=== PATIENT | male | born 1950 | race Asian ===

== ENCOUNTER 2018-08-10 10:22 | Emergency (ER) | payer BC ==
--- NOTE | 2018-08-10 10:40 | ED ---
Syncope/Near Syncope - HPI Summary HPI Summary: A 68 y/o male brought in by [facility] ambulance presents to [facility] with a chief complaint of a witnessed syncopal episode while at work post trying to urinate the morning of 08/10/18. The patient reports that at the bathroom while trying to urinate he felt dizzy. He then walked out of the bathroom after unsuccessfully urinating and he had the witnessed syncopal episode. When EMS arrived he tried to convince EMS and his coworkers that he was fine but then had a near syncopal episode again when trying to get up to go to the bathroom again and so he was brought to the ED. Per triage note, EMS arrived and state he was mildly bradycardic and hypotensive. He reports that he has a Hx of dizziness and that while he was in [place] one month [employer] he had a syncopal episode while on a train. He reports that at the time after the episode in [facility] his dizziness continued for a little while and his BP was low but he gradually got better and so he did not see anybody about this episode. He denies fever, chills, erythema (eyes), sore throat, runny nose, nasal congestion , chest pain, shortness of breath, abdominal pain, vomiting, nausea, diarrhea, hematuria , myalgia, edema and rash. However, he reports that he has had a cough for one week [employer], that he had blurry vision after his syncopal episode, he has a dry mouth and that his feet are currently cold. At triage he rated his pain as a 0/10 in severity. Vital signs at triage. HR: 87 bpm, Temperature: 97.9 , BP: 147/78, O2 Sat: 98. He denies a FHx of cardiac disease. He reports that he has been taking 5 mg of Norvasc for borderline HTN and that he takes Simvastatin. He also took Delsym for his cough. His PCP is Dr. Goyo Barton and he claims that he said that his prostate was OK. He reports that he urinated normally the morning of 08/10/18 but sometimes has difficulty urinating at night and so he has an appointment scheduled with a urologist. - History Of Current Complaint Chief Complaint: EDSyncope Hx Obtained From: Patient, EMS Onset/Duration: Sudden Onset Timing: Intermittent Episode Lasting - 1 episode followed by 1 near syncopal episode Context: Witnessed Activity At Onset: Other - after trying to urinate Associated Head Trauma: No Aggravating Factor(s): Nothing Alleviating Factor(s): Nothing Associated Signs And Symptoms: Dizzy, Other - Positive: cough, difficulty urinating - Allergies/Home Medications Allergies/Adverse Reactions: Allergies Allergy/AdvReac Type Severity Reaction Status Date / Time No Known Allergies Allergy Verified 08/10/18 10:33 Home Medications: Home Medications Norvasc 5 mg PO DAILY 08/10/18 [History Confirmed 08/10/18] Simvastatin 10 mg PO DAILY 08/10/18 [History Confirmed 08/10/18] PMH/Surg Hx/FS Hx/Imm Hx Cardiovascular History: Reports: Hx Hypertension - borderline Sensory History: Reports: Hx Contacts or Glasses Neurological History: Reports: Other Neuro Impairments/Disorders - dizziness Infectious Disease History: No Infectious Disease History: Denies: Traveled Outside the [place] in Last 30 Days - but was in [facility] - Family History Known Family History: Negative: Cardiac Disease - Social History Alcohol Use: None Substance Use Type: Reports: None Smoking Status (MU): Never Smoked Tobacco Review of Systems Negative: Fever, Chills Negative: Erythema ENT: Negative - nasal congestion Negative: Sore Throat, Nasal Discharge Negative: Chest Pain Positive: Cough. Negative: Shortness Of Breath Negative: Abdominal Pain, Vomiting, Diarrhea, Nausea Positive: other - Positive: difficulty urinating. Negative: hematuria Negative: Myalgia, Edema Negative: Rash Neurological: Other - Positive: dizziness Positive: Syncope All Other Systems Reviewed And Are Negative: Yes Physical Exam - Summary Physical Exam Summary: Constitutional: Well-developed, Well-nourished, Alert. (-) Distressed Skin: Warm, Dry HENT: Normocephalic; Atraumatic, dry oral mucosa Eyes: Conjunctiva normal Neck: Musculoskeletal ROM normal neck. (-) JVD, (-) Stridor, (-) Tracheal deviation Cardio: Rhythm regular, rate normal, vagal arrhythmia [place] post cold; Intact distal pulses; The pedal pulses are 2+ and symmetric. Radial pulses are 2+ and symmetric. (-) Murmur Pulmonary/Chest wall: Effort normal. (-) Respiratory distress, (-) Wheezes, (-) Rales Abd: Soft, (-) epigastric tenderness, (-) Distension, (-) Guarding, (-) Rebound Musculoskeletal: (-) Edema Lymph: (-) Cervical adenopathy Neuro: Micturition syncope an residual symptoms of prostatic enlargement, Alert , Oriented x3 Psych: Mood and affect Normal Triage Information Reviewed: Yes Vital Signs On Initial Exam: Initial Vitals Temp Pulse Resp BP Pulse Ox 97.9 F 87 30 147/78 98 08/10/18 10:25 08/10/18 10:25 08/10/18 10:25 08/10/18 10:25 08/10/18 10:25 Vital Signs Reviewed: Yes Diagnostics - Vital Signs Vital Signs Temp Pulse Resp BP Pulse Ox 08/10/18 10:25 97.9 F 87 30 147/78 98 - Laboratory Result Diagrams: 08/10/18 10:57 08/10/18 10:57 Lab Statement: Any lab studies that have been ordered have been reviewed, and results considered in the medical decision making process. - Radiology CXR Radiology Interpretation Completed By: Radiologist Summary of Radiographic Findings: No active cardiopulmonary disease. ED physician has reviewed this imaging report. - EKG 10:52 Cardiac Rate: NL - 74 bpm EKG Rhythm: Sinus Rhythm Summary of EKG Findings: Normal sinus rhythm at 74 bpm. No STEMI. Course/Dx Course Of Treatment: A 68 y/o male brought in by [employer] ambulance presents to [facility] with a chief complaint of a witnessed syncopal episode while at work post trying to urinate the morning of 08/10/18. Workup is remarkable. The physical exam revealed dry oral mucosa, micturition syncope, vagal arrhythmia [place] cold, residual symptoms of prostatic enlargement. EKG at 10:52 showed normal sinus rhythm at 74 bpm. CXR was negative. Lab results obtained. Post void residual was 15 mls 15 mins after 40. Case discussed with Dr. Chen, hospitalist , who accepted the patient for admission. The patient is agreeable with this plan. - Diagnoses Provider Diagnoses: Syncope - Physician Notifications Discussed Care of Patient With: Bethel Chen Time Discussed With Above Provider: 12:10 Instructed by Provider To: Admit As Inpatient Discharge - Sign-Out/Discharge Documenting (check all that apply): Patient Departure - admit Patient Received Moderate/Deep Sedation with Procedure: No - Discharge Plan Condition: Fair Disposition: ADMITTED TO [facility] Patient Education Materials: Syncope (DC), Syncope (GEN) Referrals: Goyo Barton MD [Primary Care Provider] - 1-3 Days Additional Instructions: Activity as tolerated Do Not drive until you follow up with your primary care doctor Follow up with your primary care provider for further recommendations of evaluation of your syncopal episode. Return to the Emergency room with any chest pain or shortness of breath, any syncopal episodes , or any other concerns. - Billing Disposition and Condition Condition: FAIR Disposition: Admitted to [facility] - Attestation Statements Document Initiated by Scribe: Yes Documenting Scribe: Balta Hightower Provider For Whom Scribe is Documenting (Include Credential): Martín Short MD Scribe Attestation: IBalta, scribed for Martín Short MD on 08/10/18 at 2219. Scribe Documentation Reviewed: Yes Provider Attestation: The documentation as recorded by the Balta mary accurately reflects the service I personally performed and the decisions made by , Martín Short MD Status of Scribe Document: Viewed
[2018-08-10] MEDS ORDERED: NS 0.9% 1000 ML** 2,000 ML IV ONE (10:43)
--- OUTSIDE RECORDS SUMMARY | 2018-08-10 10:51 | XMS REPORT | Continuity of Care Document ---
:1950 External Reference #:[id number] Author Name Silvestre Dejesus MD Address [address] [place] [address] Care Team Providers Name Role Phone Goyo Barton MD Care Team Information [employer] Work[employer] Unavailable Goyo Barton MD Primary Care Physician Unavailable Payers Type Date Identification Numbers Payment Provider Subscriber Effective: Policy Number: [id number] [facility] Flor 2018 [facility] PayID: [id number] [address] [address] [place] [address] Advance Directives Description No Information Available Problems Date Description Provider Status Onset: 08/03/2018 Essential hypertension Silvestre Dejesus MD Active Onset: 08/03/2018 Sensorineural hearing loss Silvestre Dejesus MD Active Onset: 08/03/2018 Impacted cerumen Silvestre Dejesus MD Active Family History Date Family Member(s) Problem(s) Comments General Cancer General Diabetes Social History Type Date Description Comments Sex Unknown Occupation clinic office coordinator Tobacco Use Start: Unknown Never Smoked Cigarettes Tobacco Use Start: Unknown Never Smoked Cigars Tobacco Use Start: Unknown Never Smoked A Pipe Smokeless Tobacco Never Used Smokeless Tobacco ETOH Use PT Does Not Currently Drink Alcohol But Did In The Past Allergies, Adverse Reactions, Alerts Description No Known Drug Allergies Medications Medication Date Status Form Strength Qnty SIG Indications Ordering Provider Simvastatin 00 Active Tablets 10mg Take One Unknown 00 Tablet By Mouth AT Bedtime Norvasc Active Tablets 5mg Unknown 00 Centrum Adults Active Tablets 1 tab Unknown 00 daily Immunizations Description No Information Available Vital Signs Date Vital Result Comment 08/03/2018 10:54am Weight 158.00 lb Weight 71.669 kg Height 65 inches 5'5" Height in cm's 165.1 cm BMI (Body Mass Index) 26.3 kg/m2 Results Description No Information Available Procedures Date Code Description Status 08/03/2018 27781 Removal Wax Impaction Completed Encounters Type Date Location Provider Dx Diagnosis Office Visit 08/03/2018 Franklyn,Silvestre Guerrero H61.23 Impacted cerumen, 10:30a 07/10/07 bilateral H90.5 Unspecified sensorineural hearing loss Plan of Treatment 08/03/2018 - Silvestre Dejesus MDH61.23 Impacted cerumen, bilateralComments:The patient's cerumen impaction was cleaned without difficulty. patient may return back for follow-up hearing test if he continues to have discomfort with hearing.H90.5 Unspecified sensorineural hearing loss
[2018-08-10 11:04] LABS: ABS Basophils 0.1 10^3/ul (0-0.2); ABS Eosinophils 0.1 10^3/ul (0-0.6); ABS Monocytes 0.5 10^3/ul (0-0.8); ABS Neutrophils 4.2 10^3/ul (1.5-7.7); ABS Nucleated RBC 0 10^3/ul; Eosinophil % 0.9 %; Hematocrit 42 % (42-52); Hemoglobin 14.4 g/dl (14.0-18.0); Lymphocyte % 29.2 %; Mean Corpuscular HGB Conc 34 g/dl (31-36); Mean Corpuscular Hemoglobin 31 pg (27-31); Mean Corpuscular Volume 91 fL (80-94); Mean Platelet Volume 7.4 fL (7.4-10.4); Nucleated Red Blood Cells % 0; Platelet Count 166 10^3/ul (150-450); Red Blood Count 4.66 10^6/ul (4.00-5.40); Red Cell Distribution Width 13 % (10.5-15); White Blood Count 6.8 10^3/ul (3.5-10.8)
[2018-08-10 11:26] LABS: Albumin 4.1 g/dL (3.2-5.2); Albumin/Globulin Ratio 1.3 (1-3); BUN/Creatinine Ratio 17.4 (8-20); Calcium 9.1 mg/dL (8.6-10.3); EGFR African American 106.4 (>60); EGFR Non-African American 87.9 (>60); Globulin 3.2 g/dL (2-4); Magnesium 2.1 mg/dL (1.9-2.7); Potassium 4.2 mmol/L (3.5-5.0); Total Bilirubin 0.7 mg/dL (0.2-1.0); Total Protein 7.3 g/dL (6.4-8.9)
[2018-08-10 11:27] LABS: Troponin I 0.01 ng/mL (<0.04)
[2018-08-10 11:46] LABS: TSH (Thyroid Stimulating Horm) 1.53 mcIU/mL (0.34-5.60)
[2018-08-10] MEDS ORDERED: Acetaminophen TAB* 325 MG PO PRN (13:32)
[2018-08-10 13:52] LABS: Urine Appearance Clear; Urine Bacteria Absent (Absent); Urine Bilirubin Negative (Negative); Urine Blood Negative (Negative); Urine Color Yellow; Urine Glucose Negative (Negative); Urine Ketones Trace (Negative); Urine Nitrite Negative (Negative); Urine Protein Negative (Negative); Urine Red Blood Cell 1+(3-5/hpf) (Absent); Urine Specific Gravity 1.011 (1.010-1.030); Urine Urobilinogen Negative (Negative); Urine White Blood Cell Trace(0-5/hpf) (Absent)
[2018-08-10] MEDS ORDERED: Enoxaparin(*) 40 MG/0.4 ML SYR SUBCUT SCH (14:00)
--- NOTE | 2018-08-10 15:35 | CONS ---
CC: Dr. Goyo Barton HISTORY AND PHYSICAL: DATE OF ADMISSION: 08/10/18 PROVIDER: Bree Walsh NP. PRIMARY CARE PROVIDER: Dr. Goyo Barton. ATTENDING PHYSICIAN WHILE IN THE HOSPITAL: Dr. Bethel Chne (dictated by Bree Walsh NP). CHIEF COMPLAINT: Syncope. HISTORY OF PRESENT ILLNESS: Mr. Flor is a 68-year-old male with past medical history significan t for hypertension and high cholesterol who presented to the emergency room by EMS after a syncopal e pisode while at work. The patient reports that he was feeling in his usual state of health this morn ing with no recent fever, chills, chest pain, or shortness of breath. He does report he has had a co ugh for approximately 2 to 3 days, it has been dry. He states that he attempted to go use the bathro om, was unable to urinate, and when walking out of the bathroom, he became dizzy and had a syncopal e pisode where staff that he works with lowered him to the ground. He had no head injury or fall. Aft er the episode, EMS was called. The patient then again tried to get up and go and use the bathroom ag ain, had another syncopal episode. Vital signs were taken by EMS and initial set of vital signs, hea rt rate was 53, blood pressure was 97/55. The patient and his report that he had a similar epis ode approximately 1 month ago when he was in [place]. The patient was on a train, he reports that he h ad to pass stool and went to use the bathroom on the train, again was having difficulty and straining . After having a bowel movement, the reports that the patient was disoriented, walking back to his seat on the train. The patient reports that he was feeling dizzy and the patient's reports that once he sat down, he had a syncopal episode while on the train. She said that she was splashing water on him and pounding on his chest and he would come to but not responding. The patient's said that she kept pushing him up into a sitting position. She said this episode lasted approximatel y 1 hour and then his symptoms did resolve. Due to 2 syncopal episodes in the last month, we were as ked to see and evaluate him for admission. PAST MEDICAL HISTORY: Significant for hypertension and increased cholesterol. HOME MEDICATIONS: 1. Norvasc 5 mg p.o. daily. 2. Simvastatin 10 mg p.o. daily. 3. Multivitamin 1 tablet p.o. daily. ALLERGIES: No known drug allergies. FAMILY HISTORY: Father with a history of hypertension, brother with a history of diabetes, brother w ith a history of prostate cancer. SOCIAL HISTORY: The patient denies any tobacco, alcohol, or illicit drug use. He is . Surro gate decision maker in the event he is unable to make his own decisions is his . He is a full co de. REVIEW OF SYSTEMS: There has been no documented fever, no unexplained weight loss, no chest pain or edema. He does report a dry, nonproductive cough x2 to 3 days. Denies any hemoptysis or shortness of breath. Denies any nausea, vomiting, diarrhea, or abdominal pain. Denies any gross hematuria. He does report increase in frequency and difficulty with urination. Denies pain or burning with urinati on. Denies any focal weakness or sensory loss. Denies any visual complaints, dysphasia, arthralgias, myalgias, rashes, lesions, open sores. Denies any psychosis or anxiety. The patient denies any vom iting of blood, black or tarry stools. He did report some dizziness prior to his syncopal episode an d feeling out of it. PHYSICAL EXAMINATION: GENERAL: At this time, Mr. Flor is a 68-year-old male. He is resting on the stretcher in the emergency room. He appears slightly pale. He is alert and oriented x3. HEENT: Head is atraumatic, normocephalic. Eyes: EOMs are intact. Sclerae are anicteric and not pa le. Oral mucosa appears to be moist. NECK: Supple. LUNGS: Clear to auscultation bilaterally. No wheezes, rales, or rhonchi. CARDIAC: S1, S2. Regular rate and rhythm. No murmurs, rubs, or gallops. ABDOMEN: Soft and nontender. Bowel sounds are active x4. MUSCULOSKELETAL: Pedal pulses are +2 bilaterally. He is able to move all 4 extremities with 5/5 str ength. NEUROLOGIC: He is awake, alert, oriented x3. Hand civil cad tech are equal. Smile is equal. Tongue is midl ine. Cranial nerves II through XII are grossly intact. Speech is clear. Thought process is intact. [id number] is intact. No gross neuro deficits are noted. SKIN: Intact. LABORATORY DATA AND DIAGNOSTIC STUDIES: WBC is 6.8, RBC is 4.66, hemoglobin 14.4, hematocrit was 42, platelet count was . Sodium 131, potassium 4.2, chloride 99, carbon dioxide was 26, anion gap was 6, BUN was 15, creatinine 0.86, glucose was 128, lactic acid 1.3, magnesium was 2.1, TSH was 1.53 . Urine was yellow, clear; pH was 7, specific gravity 1.011. Urine protein was negative, ketones were trace. Urine blood, nitrites, bilirubin, urobilinogen were all negative. Urine leukocyte esterase w as trace, wbc's were trace, rbc's 1+, urine bacteria was absent, urine glucose was negative. He had a chest x-ray. Radiologist impression: No active cardiopulmonary disease. He had an electrocardiogram in the emergency room, which showed sinus rhythm at a rate of 74. ASSESSMENT AND PLAN: Mr. Flor is a 68-year-old male who presented to the emergency room with a syncopal episode while at work. We were asked to evaluate him for admission due to syncope. The pat iegladys will be admitted under observation status for: 1. Syncope: I suspect that this is vasovagal related syncopal episode as both of his recent episode s of syncope have been related to difficulty with urination or difficulty with moving bowels and symp toms subsequently resolving after urination and passing stool. Given that this is his second syncopa l episode within 1 month, we will admit him under observation, we will monitor him on telemetry. I w ill repeat orthostatic vital signs in the a.m. He will have a transthoracic echocardiogram to rule o ut any cardiac abnormality or heart dysfunction. We will monitor on telemetry for any arrhythmias. 2. Hypertension: At this time, I will put withholding parameters for systolic blood pressure less t hale 120. He can continue his Norvasc at 5 mg p.o. daily. 3. Hyperlipidemia: He will continue on simvastatin 10 mg p.o. daily. 4. FEN: He can have a heart-healthy, caffeine okay diet. 5. Code status is a full code. 6. DVT prophylaxis. I will place him on Lovenox subcu 40 mg daily. TIME SPENT: Time spent on this patient was 60 minutes, greater than half that time was spent face-to -face with the patient obtaining my history and physical, the other half the time was spent going ove r my plan of care and implementing my plan of care. I have discussed this with my attending, Dr. Bethel Chen. He is in agreement with my plan. BREE WALSH, UNIFORM DESIGNER [id number]/[facility] #: [id number]
[2018-08-10 15:54] VITALS: BP 153/90
[2018-08-10] MEDS ORDERED: Atorvastatin* 10 MG TAB PO SCH (21:00)
--- NOTE | 2018-08-10 22:42 | CONS ---
CONSULTATION REPORT: ADDENDUM: After consultation, the patient is requesting to not be admitted. The patient at this time is requesting to sign out against medical advice. The risks of leaving against medical advice were discussed with the patient including permanent physical disability, loss of current lifestyle, cardiac arrhythmias resulting in , syncope resulting in head or limb injury. The patient was also reviewed recommended continued care of continuous cardiac monitoring to rule out any arrhythmias and echocardiogram to rule out any valvular abnormality or heart dysfunction that is causing his recurrent syncopal episodes. After reviewing these risks and benefits, the patient continues to wish to leave against medical advice. This was also reviewed with his present. The patient signed out against medical advice. The patient was given discharge instructions and instructed to return to the emergency room for any chest pain, shortness of breath, further syncopal episodes, dizziness, weakness on one side or any other concerns. He should follow up with his primary care provider, Dr. Goyo Barton as soon as possible in 1 to 3 days. I would recommend that the patient get outpatient echocardiogram and further workup for recurrent syncopal episodes to rule out cardiac cause. I would recommend that the patient may even need further cardiac rhythm monitoring with an event monitor. Again, the patient signed out against medical advice. I have discussed this with my attending Dr. Bethel Chen; he is in agreement with the plan. The patient was also instructed not to drive until seen by his primary care provider. LC DRIVER, KELVIN [id number]/[facility] #: [id number] [place]LIT[place]
[2018-08-11] MEDS ORDERED: amLODIPine TAB* 5 MG PO SCH (09:00)
== END 2018-08-10 15:53 | disposition short-term general hospital (02) ==
LOC: ED 10:22 → MEDTELE 13:32 → UNDOADMOB 13:32 → ED 15:53
DX: R55 Syncope and collapse (principal); R05 Cough; R03.0 Elevated blood-pressure reading, without diagnosis of hypertension
CPT/HCPCS: 36415; 71045; 80053; 81003; 81015; 83605; 83735; 84443; 84484; 85025; 87086; 93005; 96360; 99285